=== PATIENT | female | born 1975 | race Caucasian/White ===

== ENCOUNTER 2021-01-21 12:11 | Emergency (ER) | payer OTHER ==
[~2021-01-21] VITALS: Ht 170.2 cm; Wt 61.2 kg
[2021-01-21] MEDS ORDERED: OCELLA TABLET1 EACH PO (12:21)
[2021-01-21] MEDS ORDERED: PROZAC 10 MG CA10 MG PO (12:21)
[2021-01-21] MEDS ORDERED: IBU600 MG PO (14:12)
[2021-01-21] MEDS ORDERED: AUGMENTIN 875-1 EACH PO (14:13)
[2021-01-21 14:24] VITALS: BP 122/84
== END 2021-01-21 14:25 | disposition home or self-care (01) ==
LOC: M.ERS 12:11
DX: S61.552A Open bite of left wrist, initial encounter (principal); W54.0XXA Bitten by dog, initial encounter; Y93.89 Activity, other specified; Y92.89 Other specified places as the place of occurrence of the external cause; Y99.8 Other external cause status